=== PATIENT | female | born 1950 | race Caucasian/White ===

== ENCOUNTER → 2017-09-16 16:46 | Outpatient (CLI) | payer MEDICARE, OTHER, SELFPAY ==
[2017-09-16 17:02] LABS: Bacteria Urine None Seen; RBC Urine None Seen (0-5/HPF); WBC Urine None Seen (0-5/HPF)
[2017-09-16 17:30] LABS: Add Manual Diff / Slide Review NO; Basophils Percent Auto 1.1 % (0-2); Eosinophils Percent Auto 2.7 % (2-4); Hematocrit 38.8 % (36-46); Lymphocytes Percent Auto 20.2 % (25-40); Mean Corpuscular HGB Conc 33.5 % (30-36); Mean Corpuscular Hemoglobin 28.2 PG (26-34); Mean Corpuscular Volume 84.2 fL (80-100); Monocytes Percent Auto 9.8 % (3-14); Neutrophils Absolute Auto 4100 /uL (3000-5900); Neutrophils Percent Auto 66.2 % (50-75); Platelet Count 272 X10^3/uL (150-400); Red Blood Cell Count 4.61 X10^6/uL (4.0-5.2); Red Cell Distribution Width 13.6 % (11.6-14.8); White Blood Cell Count 6.2 X10^3/uL (4.5-11.0)
[2017-09-16 17:39] LABS: Hemoglobin A1C% w Est Avg Glu 5.6 % (4.0-6.0)
[2017-09-16 17:48] LABS: Appearance Urine UA CLEAR; Bilirubin Urine UA NEGATIVE (NEGATIVE); Color Urine UA YELLOW; Glucose Urine UA NEGATIVE (Normal); Ketones Urine UA TRACE (NEGATIVE); Leukocyte Esterase Urine UA NEGATIVE (NEGATIVE); Nitrite Urine UA Negative (Negative); Occult Blood Urine UA NEGATIVE (Negative); Protein Urine UA NEGATIVE (Negative); Specific Gravity Urine UA >=1.030 (1.000-1.035); Urobilinogen Urine UA 0.2 E.U./dL (0.2)
[2017-09-16 17:57] LABS: Hyaline Casts Urine 0-1/LPF; Mucus Urine 1+ (Negative)
[2017-09-16 18:01] LABS: BUN Creatinine Ratio 27.8 (6-22); Blood Urea Nitrogen 25 mg/dL (7-17); Calcium 10.5 mg/dL (8.4-10.2); Carbon Dioxide 29 mmol/L (22-32); Chloride 100 mmol/L (98-107); Estimated Glomerular Filt Rate > 60.0 mL/min (>60); Glucose 107 mg/dL (80-110); HEMOLYSIS < 15 (0-50); Potassium 3.5 mmol/L (3.4-5.1); Sodium 139 mmol/L (137-145)
== END ==
PROVIDERS: PCP Internal Medicine; Visit Provider Orthopaedic Surgery
DX: Z01.818 Encounter for other preprocedural examination (principal); M25.561 Pain in right knee; I10 Essential (primary) hypertension
CPT/HCPCS: 36415; 80048; 81001; 83036; 85025; 93005

== ENCOUNTER 2017-09-28 08:41 | Inpatient (IN) | payer MEDICARE, OTHER, SELFPAY ==
[2017-09-08 08:26] VITALS: BMI 38.4
[2017-09-28] VITALS (12 sets, daily range): BP systolic 114–171; BP diastolic 65–90; PULSE 58–85; RESP 13–18; TEMP 36–37.1; O2SAT 94–98; BMI 38.4
--- NOTE | 2017-09-28 | DI.RAD.S_ITS ---
PROCEDURE: XR KNEE RT 1TO2V INDICATIONS: 67 year-old female status post right knee replacement. TECHNIQUE: 2 postoperative view(s) of the knee acquired. COMPARISON: [facility] [place], CR, XR BONE LENGTH SCANOGRAM, 06/18/2017, 12:33. [facility] [place], CR, XR ARTHROGRAM KNEE RIGHT, 04/12/2017, 11:36. [facility], RG, KNEE 3VW (RT), 11/13/2014, 10:40. FINDINGS: Bones: Patient is status post knee joint arthroplasty. Hardware components are in expected positions. Visualized bony structures are intact. Soft tissues: Overlying postoperative changes are noted, including a surgical drain. IMPRESSION: Status post right knee arthroplasty, with hardware components in expected positions. Dictated by: Mau Holt M.D. on 09/28/2017 at 13:32 Approved by: Mau Holt M.D. on 09/28/2017 at 13:33
[2017-09-28] MEDS: LACTATED RINGERS 1,000 ML 42 ML IV ×2 (09:24→12:37)
--- NOTE | 2017-09-28 09:57 | SUR.PREOP ---
Dr Escamilla notified of suspician of ring worm on sole of left foot, states to continue with case.
[2017-09-28] MEDS: VANCOMYCIN 1,000 MG/200 ML FROZ.PIGGY 200 MG IV (10:10)
[2017-09-28] MEDS: MIDAZOLAM 2 MG/2 ML VIAL IV (10:35)
[2017-09-28] MEDS: fentaNYL 100 MCG/2 ML INJ 50 MCG IV (10:35)
[2017-09-28] MEDS: CEFAZOLIN 2 GM/100 ML FROZ.PIGGY IV ×2 (10:49→22:41)
--- NOTE | 2017-09-28 10:54 | SUR.PREOP ---
Block start time [1035] . Monitoring initiated and maintained throughout procedure. Oxygen and medications given per anesthesiologist instructions. Patient remained stable throughout procedure, no adverse reactions noted. Block end time [1044]
--- NOTE | 2017-09-28 10:59 | PM.PREOP ---
Pre-operative Note Interval Note Pre-op Check: History & Physical Reviewed by Physician
--- NOTE | 2017-09-28 10:59 | PM.OP.1 ---
Operative Date/Time/Diagnoses - Date of procedure: 09/28/17 Time of procedure: 10:59 Pre-op diagnosis: Right knee arthritis Post-op diagnosis: same Procedure & Clinicians Procedure: Right total knee arthroplasty Same procedure as scheduled: Yes Indications: The patient has had progressively worsening right knee pain with radiographic changes consistent with arthritis. Non-operative management has failed and the patient has requested total knee replacement. The risks, benefits and alternatives to surgery were discussed with the patient prior to proceeding. Risks discussed included, but were not limited to, failure to relieve pain, stiffness, infection, nerve damage, deep venous thrombosis, pulmonary embolism, stroke, coma, heart attack, permanent paralysis and , as well as the potential need for eventual revision of the prosthetic. Surgeon: Faye Escamilla Track Maintainer: Shelton Benitez Anesthesia Type: Spinal Operative Notes Findings: Severe right knee OA Closure Type: primary Specimen(s): none sent Implants & Drains: Kyler be CS to size 6 right femur, 35 x 7 and 0.5 mm patella, size 5 right tibia, 9 mm poly Applied: drain(s) Estimated Blood Loss (mL): 250 Blood products transfused: none Tourniquet time (min): 70 Procedure in detail: The patient was seen in the pre-operative area, where the patient identified the right knee as the operative site and this was marked with my initials. The patient received pre-operative antibiotics, and was taken to the operating room and placed on the operative table in the supine position. After satisfactory anesthesia, a timekeeping supervisor out was performed. The right leg was encircled with a tourniquet about the proximal thigh, and the leg was prepared from the toes to the tourniquet with ChloroPrep in the usual fashion and draped through sterile drapes. The leg was elevated and exsanguinated with Eschmark bandage and the tourniquet inflated to [250] mmHg pressure. The knee was approached through an approximately 18 cm incision centered over the patella and carried into the knee through a medial parapatellar arthrotomy. A portion of the medial and lateral meniscus was resected. Soft tissue was carefully mobilized around the patella the patella was measured with a caliper. Bone was resected from the patella and the patellar height was reconstituted with up an appropriate sized patellar component. For a cover was then placed on the patella. A small amount of additional medial and lateral meniscus was resected. The visionare guide fit well to the distal femur. It looked like an appropriate distal femoral cut and the cut was made without difficulty. The rotation was assessed and the appropriate size femoral guide was placed on the distal femur and finishing cuts were made. There is no evidence of notching. The anterior, posterior and chamfer cuts were then made. The posterior osteophytes and soft tissues were then removed. The posterior capsule was injected with part of a mixture of 60 ml 0.25% Marcaine mixed with 20 ml Exparel for post operative pain control. The remainder of this mixture was injected into the capsule and subcutaneous tissues during cement curing. The tibia was prepared and the visionaire guide fit well to the distal tibia. The rotation was assessed. The patient was placed in extension residual medial and lateral meniscus as well as any residual bone was carefully resected. [No] additional tibia was resected. Hemostasis was achieved especially posteriorly. Additional local was injected into the posterior capsule. The extension gap was assessed and additional releases for gap balancing were performed as necessary. It was checked with the gap intake specialist. The femoral component was trial was placed and the notch was finished. Trial tibial and femoral components were then placed and the knee placed through a range of motion. Range of motion was [0-130], with good stability throughout the range. The trials were then removed, and the tibia was finished. The bone was prepared with pulsatile lavage, and dried with a sponge. Cement was applied and the final prosthetics placed. Excess cement was removed during and after cement curing. A brief Betadine soak was performed. After confirming there was no extruded cement posteriorly, the final tibial insert was placed. The knee was copiously irrigated and the tourniquet deflated. Hemostasis was obtained with the [Aquamantys system]. A drain was placed and brought out superolaterally. The capsule was closed with interrupted # 1 black braided suture. The subcutaneous layer was closed with barbed sutures, and the skin with a running 3-0 V-Lock suture and Surgical glue. An Aquacel Ag dressing was applied and the patient was taken to recovery having tolerated the procedure well. Complications: none Condition: stable Disposition: Acute Care Plan for aftercare: The patient will be maintained on a standard total knee replacement protocol with weight bearing as tolerated. The patient will receive aspirin and sequential compression devices for DVT prophylaxis. The patient will be discharged home when safe for the home environment.
--- NOTE | 2017-09-28 11:06 | P.OP_ITS ---
Operative Date/Time/Diagnoses - Date of procedure: 09/28/17 Time of procedure: 10:59 Pre-op diagnosis: Right knee arthritis Post-op diagnosis: same Procedure & Clinicians Procedure: Right total knee arthroplasty Same procedure as scheduled: Yes Indications: The patient has had progressively worsening right knee pain with radiographic changes consistent with arthritis. Non-operative management has failed and the patient has requested total knee replacement. The risks, benefits and alternatives to surgery were discussed with the patient prior to proceeding. Risks discussed included, but were not limited to, failure to relieve pain, stiffness, infection, nerve damage, deep venous thrombosis, pulmonary embolism, stroke, coma, heart attack, permanent paralysis and , as well as the potential need for eventual revision of the prosthetic. Surgeon: Faye Escamilla Brand Activation Manager: Shelton Benitez Anesthesia Type: Spinal Operative Notes Findings: Severe right knee OA Closure Type: primary Specimen(s): none sent Implants & Drains: Kyler be CS to size 6 right femur, 35 x 7 and 0.5 mm patella, size 5 right tibia, 9 mm poly Applied: drain(s) Estimated Blood Loss (mL): 250 Blood products transfused: none Tourniquet time (min): 70 Procedure in detail: The patient was seen in the pre-operative area, where the patient identified the right knee as the operative site and this was marked with my initials. The patient received pre-operative antibiotics, and was taken to the operating room and placed on the operative table in the supine position. After satisfactory anesthesia, a time checker out was performed. The right leg was encircled with a tourniquet about the proximal thigh, and the leg was prepared from the toes to the tourniquet with ChloroPrep in the usual fashion and draped through sterile drapes. The leg was elevated and exsanguinated with Eschmark bandage and the tourniquet inflated to [250] mmHg pressure. The knee was approached through an approximately 18 cm incision centered over the patella and carried into the knee through a medial parapatellar arthrotomy. A portion of the medial and lateral meniscus was resected. Soft tissue was carefully mobilized around the patella the patella was measured with a caliper. Bone was resected from the patella and the patellar height was reconstituted with up an appropriate sized patellar component. For a cover was then placed on the patella. A small amount of additional medial and lateral meniscus was resected. The visionare guide fit well to the distal femur. It looked like an appropriate distal femoral cut and the cut was made without difficulty. The rotation was assessed and the appropriate size femoral guide was placed on the distal femur and finishing cuts were made. There is no evidence of notching. The anterior, posterior and chamfer cuts were then made. The posterior osteophytes and soft tissues were then removed. The posterior capsule was injected with part of a mixture of 60 ml 0.25% Marcaine mixed with 20 ml Exparel for post operative pain control. The remainder of this mixture was injected into the capsule and subcutaneous tissues during cement curing. The tibia was prepared and the visionaire guide fit well to the distal tibia. The rotation was assessed. The patient was placed in extension residual medial and lateral meniscus as well as any residual bone was carefully resected. [No] additional tibia was resected. Hemostasis was achieved especially posteriorly. Additional local was injected into the posterior capsule. The extension gap was assessed and additional releases for gap balancing were performed as necessary. It was checked with the gap agricultural extension educator. The femoral component was trial was placed and the notch was finished. Trial tibial and femoral components were then placed and the knee placed through a range of motion. Range of motion was [ 0-130], with good stability throughout the range. The trials were then removed, and the tibia was finished. The bone was prepared with pulsatile lavage, and dried with a sponge. Cement was applied and the final prosthetics placed. Excess cement was removed during and after cement curing. A brief Betadine soak was performed. After confirming there was no extruded cement posteriorly, the final tibial insert was placed. The knee was copiously irrigated and the tourniquet deflated. Hemostasis was obtained with the [Aquamantys system]. A drain was placed and brought out superolaterally. The capsule was closed with interrupted # 1 black braided suture. The subcutaneous layer was closed with barbed sutures, and the skin with a running 3 -0 V-Lock suture and Surgical glue. An Aquacel Ag dressing was applied and the patient was taken to recovery having tolerated the procedure well. Complications: none Condition: stable Disposition: Acute Care Plan for aftercare: The patient will be maintained on a standard total knee replacement protocol with weight bearing as tolerated. The patient will receive aspirin and sequential compression devices for DVT prophylaxis. The patient will be discharged home when safe for the home environment.
[2017-09-28] MEDS: BUPIVACAINE LIPOSOME 266 MG/20 ML VIAL INJ (11:30)
[2017-09-28] MEDS: BUPIVACAINE 0.25% W/ EPI 50 ML VIAL INJ (11:30)
[2017-09-28] MEDS: POVIDONE-IODINE 15 ML, SODIUM CHLORIDE 0.9% 250 ML TOP (11:31)
--- NOTE | 2017-09-28 11:36 | SUR.OPER ---
Supine on padded OR bed. Pillow under head, arms secured on padded armboards <90 degree abduction. Safety belt across torso. Non-operative leg secured with tape over blanket over lower leg. Operative leg secured in DeMayo/Reinaldo positioner. Foam padded brace at foot and calf of operative leg.
--- NOTE | 2017-09-28 12:40 | SUR.PREOP ---
Dr Escamilla in preop to see pts foot, states ok to proceed with surgery.
[2017-09-28] MEDS: MEPERIDINE 25 MG/ML SYRINGE IV (13:17)
--- NOTE | 2017-09-28 13:21 | SUR.PHASEI ---
spinal clear to L4
[2017-09-28] MEDS: hydrOXYzine 50 MG/ML INJ 25 MG IM (13:32)
--- NOTE | 2017-09-28 14:37 | PC.NURSE ---
Addendum entered by June Yang R.N. 09/28/17 15:06: Able to administer one 10mg tablet of oxycodone with bite of applesauce, no nausea reported. 100% RA Original Note: Patient arrived to room 204 at 1345 c/o 6/10 pain. Orders still haven't transferred and patient now c/o 10/10 pain (in knee). Coordinator called down to OR to rectify issue.
[2017-09-28] MEDS: OXYCODONE IR 10 MG TABLET PO (15:03)
[2017-09-28] MEDS: LACTATED RINGERS 1,000 ML 125 ML IV ×2 (15:11→22:43)
[2017-09-28] MEDS: ACETAMINOPHEN 325 MG TABLET 650 MG PO ×2 (15:18→20:52)
[2017-09-28] MEDS: KETOROLAC 30 MG/ML VIAL IV (16:19)
[2017-09-28] MEDS: HYDROMORPHONE 2 MG TABLET PO (17:25)
--- NOTE | 2017-09-28 18:52 | PC.NURSE ---
At 1530 patient still reporting pain not relieved by Oxycodone. Dr Escamilla in room to see patient. New order for Toradol 30 mg IV given. Did report some relief, eventually called to report pain 7 or 8, describing burning to top of my knee. We talked about pain medication options, she agreed to try Dilaudid 2 mg PO instead of the Oxycodone. After 1 hour said medication really did help, reports much less burning pain to knee. Able to transfer to [facility] for void, then ambulated around bed to recliner where she is now resting. Said felt good to bear weight on RLE, needing minimal SBA & cueing from staff for transfer. Good use of FWW. Family visiting.
[2017-09-28] MEDS: DOCUSATE 100 MG CAPSULE PO (20:51)
[2017-09-28] MEDS: SENNOSIDES 8.6 MG TABLET 17.2 MG PO (20:51)
[2017-09-28] MEDS: hydroCHLOROthiazide 25 MG TABLET PO (20:52)
[2017-09-28] MEDS: ASPIRIN EC 81 MG TABLET PO (20:53)
[2017-09-29] VITALS: BP 140/74; PULSE 59; RESP 20; TEMP 36.6; O2SAT 98
[2017-09-29] MEDS: HYDROMORPHONE 2 MG TABLET PO ×3 (00:06→06:30)
[2017-09-29] MEDS: ACETAMINOPHEN 325 MG TABLET 650 MG PO ×2 (02:34→09:16)
[2017-09-29 04:00] VITALS: BP 147/77; PULSE 70; RESP 20; TEMP 36.6; O2SAT 94
[2017-09-29 06:12] LABS: Hematocrit 33.2 % (36-46); Hemoglobin 11.1 g/dL (12.0-16.0)
[2017-09-29] MEDS: CEFAZOLIN 2 GM/100 ML FROZ.PIGGY IV (06:29)
--- NOTE | 2017-09-29 07:14 | PM.DS.1 ---
History of Present Illness Date Patient Seen: 09/29/17 Time Patient Seen: 07:09 Chief complaint: rt total kne arthroplasty [id number] Narrative: Patient was seen postop day 1 status post right TKA. The patient is doing well, she has been up several times with assistance to the bathroom. Pain is better controlled today than yesterday. She would like to go home today if cleared by physical therapy. Discharge Providers Date of admission: 09/28/17 08:41 Primary care physician: Last Ewing MD Consults: 09/28/17 06:00 Consult to Discharge Planning Routine Comment: post operative joint surgery 09/28/17 14:50 Consult to Discharge Planning Routine Comment: Consult to Physical Therapy Evaluate & Treat Comment: Physician Instructions: postop TKA protocol Consult to Respiratory Therapy Evaluate & Treat Comment: Physician Instructions: Evaluate and treat Discharge provider: Bridget Underwood PA-C Summary Discharge Diagnosis: Right knee osteoarthritis Hospital Course: The patient was transferred to the surgical floor status post right TKA on 09/28/2017. Patient tolerated the procedure well with no major complications. Patient was seen by PT who recommended patient be discharged home. Patient to be discharged on 09/29/2017. Status at Discharge Cognitive/behavioral status at discharge: Alert oriented x3. Functional status at discharge: uses cane/walker Overall status at discharge: patient is progressing back to baseline Time Spent with Patient Less than 30 minutes Exam Vital Signs (past 8 hours): - 09/29/17 00:00 09/29/17 04:00 Temperature 97.8 F 98 F Pulse Rate 59 L 70 Respiratory Rate 20 20 Blood Pressure 140/74 H 147/77 H Pulse Oximetry 98 94 Oxygen Delivery Method Room Air Narrative Exam Narrative: Well-developed well-nourished in no acute distress. Patient alert oriented x3. Exam right knee dressing is clean dry intact. Hemovac drain has minimal discharge in it. Calf is soft and supple and she has full range of motion of the ankle. She is neurovascularly intact in this extremity. Objective Labs Result Diagrams: 09/29/17 05:55 Labs: Laboratory Results - last 24 hr 09/29/17 05:55 Hgb 11.1 L Hct 33.2 L Discharge Plan Discharge Plan Patient Disposition: Home, Self-Care Discharge Med Rec/Prescriptions Prescriptions: New oxycodone 5 mg tablet 5 mg PO Q4-6H PRN (Reason: pain) Qty: 60 RF: 0 aspirin 81 mg Tablet,Delayed Release (Dr/Ec) 81 mg PO BID Qty: 0 RF: 0 docusate sodium 100 mg Capsule 100 mg PO BID Qty: 0 RF: 0 hydroxyzine pamoate [Vistaril] 25 mg capsule 25 mg PO Q6-8H PRN (Reason: nausea) Qty: 60 RF: 0 Continue metoprolol succinate 50 mg Tablet Extended Release 24 Hr 50 mg PO DAILY RF: 0 hydrochlorothiazide 25 mg Tablet 25 mg PO BID RF: 0 sennosides-docusate sodium [Senna with Docusate Sodium] 8.6-50 mg Tablet 3 tab PO BEDTIME RF: 0 calcium polycarbophil [Fiber (calcium polycarbophil)] 625 mg Tablet 1,250 mg PO DAILY RF: 0 losartan 100 mg Tablet 100 mg PO DAILY RF: 0 magnesium 200 mg Tablet 200 mg PO DAILY RF: 0 albuterol sulfate 90 mcg/actuation Hfa Aerosol Inhaler 1 - 2 puff INHALATION Q4-6H PRN (Reason: Wheezing) RF: 0 Discontinued aspirin 81 mg Tablet,Delayed Release (Dr/Ec) 81 mg PO DAILY RF: 0 Follow up/Referrals: [facility] [Provider Group] - 10/04/17 4:00 pm (Appointment with Larisa Castillo) Provider Discharge Instructions Diet: Diet as Tolerated Wound Care Report to your healthcare provider any signs of infection, such as:: chills, fever, night sweats, increased pain and unusual drainage Dressing: Keep Aquacel dressing on and clean, dry & intact. May remove patricia wrap POD #2. May shower with Aquacel on. Visit Report/Discharge Packet Instructions: DI for Knee Replacement Discharge Data Primary Care Provider: Last Ewing Attending Provider: Faye Escamilla Admit Date/Time: 09/28/17 08:41 Quality VTE Deep Vein Thrombosis/Pulmonary Embolism Present on Admission: No
[2017-09-29 07:50] VITALS: BP 169/75; PULSE 69; RESP 16; TEMP 36.3; O2SAT 98
[2017-09-29 09:16] VITALS: BP 169/75
[2017-09-29] MEDS: hydroCHLOROthiazide 25 MG TABLET PO (09:16)
[2017-09-29] MEDS: METOPROLOL ER 50 MG TABLET PO (09:16)
[2017-09-29] MEDS: CALCIUM POLYCARBOPHIL 625 MG TABLET 1250 MG PO (09:16)
[2017-09-29] MEDS: DOCUSATE 100 MG CAPSULE PO (09:16)
[2017-09-29] MEDS: ASPIRIN EC 81 MG TABLET PO (09:16)
[2017-09-29] MEDS: LOSARTAN 50 MG TABLET 100 MG PO (09:17)
--- NOTE | 2017-09-29 09:43 | PT.IIE ---
Current Diagnoses Unilateral primary osteoarthritis, right knee (09/28/17) Surgery Performed Operation Date: 09/28/17 10:45 Actual Procedures p Total Knee Arthroplasty(Right) - Faye sEcamilla MD Surgical History (Last Reviewed 09/29/17 @ 08:16 by Lydia Seo, PT) H/O carpal tunnel repair (Acute) H/O left cataract extraction (Acute) H/O right cataract extraction (Acute) H/O vascular surgery (Acute) H/O: (Acute) History of corneal transplant (Acute) History of tonsillectomy (Acute) Previous back surgery (Acute) Medical History (Last Reviewed 09/29/17 @ 08:15 by Lydia Seo, PT) Arthritis (Acute) Chronic constipation (Acute) History of bronchitis (Acute) History of headache (Acute) History of hysterectomy (Acute) Hyperaldosteronism (Acute) Hypertension (Acute) Lipodermatosclerosis (Acute) Neck pain (Acute) Numbness of arm (Acute) Positional vertigo (Acute) Post-operative nausea and vomiting (Acute) Postmenopausal (Acute) Skin cancer (Acute) Wheezes (Acute) Physical Therapy Inpatient Evaluation/Re-Eval M1 PT/OT-IP Prior Functional Status Start: 09/29/17 08:18 Freq: NEEDED Status: Active Protocol: Document 09/29/17 09:43 DLM (Rec: 09/29/17 10:26 [facility] [id number]) Medical Review Prior Functional Status Medical History Reviewed Yes Diet/Fluid Consistency Regular Communication WNL Mobility and Gait Independent without device Activities of Daily Living and IADL's Independent Social History Household Members spouse Living Arrangements House Number of Floors (Floors) One Floor Number of Stairs To Enter/Railing? 3 with one rail Home Environment Standard Height Toilet Home Equipment Front Wheel Walker Straight Cane Raised Toilet Seat Without Armrests Additional Social History Comment Her toilet is in a small separate room that is very small M2 PT-IP Current Condition Start: 09/29/17 08:18 Freq: NEEDED Status: Active Protocol: Document 09/29/17 09:43 DLM (Rec: 09/29/17 10:26 [facility] [id number]) Physical Therapy Current Condition Current Condition Evaluation Date 09/29/17 Treatment Diagnosis right total knee arthroplasty, gait impairment Onset Date 09/28/17 Weight Bearing Status Weight Bearing Status Weight Bear as Tolerated M3 PT-IP Subjective Start: 09/29/17 08:18 Freq: NEEDED Status: Active Protocol: Document 09/29/17 09:43 DLM (Rec: 09/29/17 10:26 [facility] [id number]) Subjective Physical Therapy Visit Type Type Initial Evaluation Visit Start Time 09:00 Visit Stop Time 09:43 Total Visit Minutes 43 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 She has out-pt PT scheduled for Wednesday Patient/Caregiver Goals discharge home Therapy Pain Assessment Pain When Pain Assessed At Rest Pain Present Pain Present Pain Reported Location Surgical left knee Intensity 4 Scale Used Numeric (1 - 10) Description Aching Pain Behaviors Wincing Pain Management Techniques Apply Cold Elevation Timing of Activity with Medications M4 PT-IP Mobility and Gait Start: 09/29/17 08:18 Freq: NEEDED Status: Active Protocol: Document 09/29/17 09:43 DLM (Rec: 09/29/17 10:26 [facility] [id number]) PT-Bed Mobility Assessment Supine to Sit Supine to Sit Independent Sit to Supine Sit to Supine Independent Scooting Scooting to Edge of Bed Independent Scooting Up and Down in Bed Independent PT-Transfer Assessment Sit to and From Stand Sit to and from Stand Independent Use of Upper Extremities Equipment Transfer Assistive Device Gait Belt Front Wheeled Walker Transfers Transfer Destination Chair Transfer Technique Stand Step Pivot Transfer Ability Level of Assist Independent Comments Mobility Comments safe use of FWW Gait Assessment Gait Gait Assistance Required: Standby Assistance Distance (Feet) (feet) 50 Able to Maintain Weight Bearing Status Yes During Gait Assistive Devices Assistive Device Gait Belt Front Wheeled Walker Gait Deviations General Gait Pattern Antalgic Factors Limiting Gait Function Factors Limiting Gait Function Decreased Sensation Decreased Strength Limited Range of Motion Pain Poor Balance Stair Climbing Assessment Evaluation Level of Assist On Stairs Standby Assistance Devices Stair Climbing Assistive Devices Left Railing Right Railing Technique/Endurance Stair Climbing Direction Ascend and Descend Stair Climbing Technique Step to Step Number of Steps Climbed 3 Query Text: Stair Climbing Set # Repetitions (reps) 1 Comments Stair Climbing Comments needs UE support to manage her right knee pain PT-Balance Assessment Sitting Balance and Reactions Static Sitting Balance Ability Normal Dynamic Sitting Balance Ability Normal Standing Balance and Reactions Static Standing Balance Ability Good Dynamic Standing Balance Ability Good Device Used with FWW M5 PT-IP Objective Assessments Start: 09/29/17 08:18 Freq: NEEDED Status: Active Protocol: Document 09/29/17 09:43 DLM (Rec: 09/29/17 10:26 [facility] [id number]) Orientation Orientation/Cognition Level of Alertness Alert Orientation Name Age Birthday Month Date Year Day of Week Place Situation Language Function Ability No Deficits Noted Safety Awareness Understands Safety Issues Memory Description No Deficits Noted Gross Range of Motion Upper Extremity ROM Assessment Within Functional Limits Lower Extremity ROM Assessment Right Impaired Impairments knee 10-80 degrees with pain, patricia wrap on knee today Strength Upper Extremity Strength Assessment Within Functional Limits Lower Extremity Strength Assessment Right Impaired Hip needs assist with straight leg raise, uses UE's to assist LE into bed Knee ext 3-/5, flexion 3+/5 Ankle DF 5/5 Coordination Assessment Gross Coordination Gross Coordination WNL Sensation Assessment Sensation Gross Sensation WNL Muscle Tone Muscle Tone WNL Yes M6 PT-IP Treatment Start: 09/29/17 08:18 Freq: NEEDED Status: Active Protocol: Document 09/29/17 09:43 DLM (Rec: 09/29/17 10:26 [facility] [id number]) Physical Therapy Treatment Exercises Exercises Ankle Pumps Quad Sets Heel Slides Straight Leg Raises Passive Knee Extension Hang Seated Knee Flexion/Extension Education Education Provided Weight Bearing Status Post-Op Packet Safety Equipment Issued Equipment Type and Company pt has her FWW from home M7 PT-IP Assessment and Plan Start: 09/29/17 08:18 Freq: NEEDED Status: Active Protocol: Document 09/29/17 09:43 DLM (Rec: 09/29/17 10:26 [facility] [id number]) PT Summary Assessment and Plan Potential Rehabilitation Potential Excellent Status of Condition at Evaluation Evolving Summary Impairments Pain ROM Strength Balance Bed Mobility Transfers Gait Activity Tolerance Assessment Summary Pt is progressing well today, post-op day one. She tolerated gait and stairs well with knee pain. Pt fatigued and nauseated at end of visit ( nursing informed). Her Spouse is not present at this time for training. Anticipate she will be safe to discharge home later today if her Spouse is able to assist her and her nausea can be managed. Goals Gait Goal Independent Front Wheel Walker Gait Distance 150 Other Goals Up and down 3 steps with rail and cane, independent Days to Meet Goals 2 Frequency of Treatment Frequency Of Treatment Twice a Day Treatment Plan Physical Therapy Treatment Plan Bed Mobility Training Transfer Training Gait Training Therapeutic Exercise Balance Retraining Post Op Education Discharge Planning Hot or Cold Pack Other Recommendations and Next Treatment progress gait as tolerated, Focus education with her Spouse Recommendations To Nursing Amount of Assist Needed Standby Assistance Discharge Recommendations PT Discharge Recommendations Home with Assistance Outpatient PT
[2017-09-29] MEDS: OXYCODONE IR 10 MG TABLET PO (10:00)
== END 2017-09-29 10:55 | disposition home or self-care (01) | DRG 470 ==
PROVIDERS: Admitting Provider Orthopaedic Surgery; PCP Internal Medicine; Visit Provider Orthopaedic Surgery
PROC: 0SRC0JZ Replacement of Right Knee Joint with Synthetic Substitute, Open Approach (ICD-10-PCS; CPT 27447; principal; 2017-09-28 10:45)
DX: M17.11 Unilateral primary osteoarthritis, right knee (principal); E66.9 Obesity, unspecified; Z68.38 Body mass index [BMI] 38.0-38.9, adult; I10 Essential (primary) hypertension
CPT/HCPCS: 36415; 64450; 73560; 85014; 85018; 97110; 97162; C1776; C9290; J0690; J1885; J2175; J2250; J2704; J3010; J3370; J3410

== ENCOUNTER → 2023-07-21 15:08 | Outpatient (CLI) | payer MEDICARE, OTHER, SELFPAY ==
[2023-06-08 14:07] VITALS: BMI 38.4
== END ==
PROVIDERS: PCP Family Medicine; Referring Provider Family Medicine; Visit Provider Family Medicine
DX: R00.2 Palpitations (principal); I1A.0 Resistant hypertension; R00.1 Bradycardia, unspecified
CPT/HCPCS: 93246

== ENCOUNTER → 2024-03-07 11:32 | Outpatient (CLI) | payer MEDICARE, OTHER, SELFPAY ==
[2023-06-08 14:07] VITALS: BMI 38.4
[2024-03-07 13:34] LABS: BUN Creatinine Ratio 37.7 (6-22); Blood Urea Nitrogen 23 mg/dL (7-17); Calcium 10.8 mg/dL (8.4-10.2); Carbon Dioxide 29 mmol/L (22-32); Chloride 103 mmol/L (98-107); Estimated Glomerular Filt Rate > 60 mL/min (>60); Glucose 99 mg/dL (80-110); HEMOLYSIS < 15 (0-50); Potassium 3.6 mmol/L (3.4-5.1); Sodium 139 mmol/L (137-145)
[2024-03-07 15:03] LABS: Hep C Virus Ab w/Reflex Quant NEGATIVE s/c (NEGATIVE)
== END ==
PROVIDERS: PCP Family Medicine; Referring Provider Family Medicine; Visit Provider Family Medicine
DX: Z00.00 Encounter for general adult medical examination without abnormal findings (principal); Z11.59 Encounter for screening for other viral diseases; I1A.0 Resistant hypertension; N95.2 Postmenopausal atrophic vaginitis
CPT/HCPCS: 36415; 80048; 86803

== ENCOUNTER → 2024-03-10 14:26 | Outpatient (CLI) | payer MEDICARE, OTHER, SELFPAY ==
[2023-06-08 14:07] VITALS: BMI 38.4
[2024-03-13 14:10] LABS: Fecal Immunochemical Test Negative (Negative)
== END ==
PROVIDERS: PCP Family Medicine; Referring Provider Family Medicine; Visit Provider Family Medicine
DX: Z12.11 Encounter for screening for malignant neoplasm of colon (principal)
CPT/HCPCS: 82274

== ENCOUNTER → 2024-04-20 14:41 | Outpatient (CLI) | payer MEDICARE, OTHER, SELFPAY ==
[2023-06-08 14:07] VITALS: BMI 38.4
--- NOTE | 2024-04-20 14:43 | DI.MG.S_ITS ---
BILATERAL DIGITAL SCREENING MAMMOGRAM 3D/2D WITH CAD: 04/20/2024 CLINICAL: Routine screening. Family history of breast cancer. Comparison is made to exams dated: 11/04/2022 mammogram, 10/22/2020 mammogram, 05/23/2019 mammogram, and 04/20/2019 mammogram - [facility]. There are scattered areas of fibroglandular density (category b / 25%-50% glandular tissue). Current study was also evaluated with a Computer Aided Detection (CAD) system. No significant masses, calcifications, or other findings are seen in either breast. There has been no significant interval change. IMPRESSION: NEGATIVE There is no mammographic evidence of malignancy. A 1 year screening mammogram is recommended. Based on the Tyrer Cuzick model (a risk assessment model) the patient's lifetime risk is 4.5% and her 10 year risk is 4.1%. According to the ACR, ACS, and NCCN guidelines, an annual breast MRI exam along with mammogram is recommended if the patient's lifetime risk is 20% or greater. This exam was interpreted at Station ID: [id number]. NOTE: For mammograms, a report in lay terms will be sent to the patient. Approximately 15% of breast malignancies will not be visualized mammographically. In the management of a palpable breast mass, a negative mammogram must not discourage biopsy of a clinically suspicious lesion. Electronically Signed By: Brian rey/ana:04/21/2024 12:34:32 letter sent: Normal Exam ACR BI-RADS Category 1: Negative
--- NOTE | 2024-04-20 14:43 | DI.RAD.S_ITS ---
PROCEDURE: XR DEXA AXIAL SKELETON INDICATIONS: Screening disorders of bone density and structure COMPARISON: None. FINDINGS: Lumbar Spine: Bone mineral density is 0.951 g/cm2, T score -0.9. Left Femoral Neck: Bone mineral density 0.874 g/cm2, T score -0.6. Left Hip: Bone mineral density 0.728 g/cm2, T score -1.1. Fracture Risk Calculation (when applicable): 10-year fracture risk of a major osteoporotic fracture 14% and of a hip fracture 2.1%. (T score greater or equal to -1.0 to: NORMAL) (T score from -1.1 to -2.4: OSTEOPENIA) (T score less than or equal to -2.5: OSTEOPOROSIS) IMPRESSION: By WHO criteria, patient has osteopenia. Follow-up guidelines as follows: Osteoporosis: Consider a repeat DEXA and Vertebral Fracture Assessment (VFA) exam in 2 years or sooner if medically necessary, to reassess this patient's status. Osteopenia: Consider a repeat DEXA in 2-3 years to reassess this patient's status, or if there is a new clinical indication. Normal: Consider a repeat DEXA in 5 years or sooner, or if there is a new clinical indication. All treatment decisions require clinical judgment and consideration of individual patient factors, including patient preferences, comorbidities, previous drug use, risk factors not captured in the FRAX model (e.g., frailty, falls, vitamin D deficiency, increased bone turnover, interval significant decline in bone density ) and possible under- or over-estimation of fracture risk by FRAX. In addition, the NOF Guide recommends that FDA-approved medical therapies be considered in postmenopausal women and men age >= 50 years with a: * Hip or vertebral (clinical or morphometric) fracture * T-score of <=-2.5 at the spine or hip * Ten-year fracture probability by FRAX of >= 3% for hip fracture or >=20% for major osteoporotic fracture. Approved by: Mickey Elliott M.D. on 04/20/2024 at 17:09
== END ==
PROVIDERS: PCP Family Medicine; Referring Provider Family Medicine; Visit Provider Family Medicine
DX: M85.89 Other specified disorders of bone density and structure, multiple sites (principal); Z12.31 Encounter for screening mammogram for malignant neoplasm of breast; Z80.3 Family history of malignant neoplasm of breast
CPT/HCPCS: 77063; 77067; 77080

== ENCOUNTER → 2024-04-28 17:25 | Outpatient (CLI) | payer MEDICARE, OTHER, SELFPAY ==
[2023-06-08 14:07] VITALS: BMI 38.4
--- NOTE | 2024-04-28 17:27 | DI.RAD.S_ITS ---
PROCEDURE: XR LUMBAR SPINE MIN 4V INDICATIONS: Left lower extremity pain, lumbar radiculopathy TECHNIQUE: 5 views of the lumbar spine acquired, including flexion and extension views. COMPARISON: None. FINDINGS: Diffuse osseous demineralization. Five non rib-bearing lumbar vertebrae are present. Age-indeterminate T12 superior endplate compression fracture with 5-10 percent height loss. The other vertebral body heights are preserved. Multilevel facet arthropathy, most conspicuous at L4-L5 and L5-S1. Multilevel hypertrophy of the spinous processes. Aortic vascular calcifications. Intervertebral disc height loss at L5-S1. No dynamic instability on flexion-extension views. Mildly exaggerated lumbar lordosis. IMPRESSION: No acute radiographic abnormality of the lumbar spine. No dynamic instability. Dictated by: Emmanuel Mark M.D. on 04/28/2024 at 18:24 Approved by: Emmanuel Mark M.D. on 04/28/2024 at 18:26
--- NOTE | 2024-04-28 17:27 | DI.RAD.S_ITS ---
PROCEDURE: XR KNEE LT 3V INDICATIONS: Left knee pain TECHNIQUE: 3 views of the knee were acquired. COMPARISON: None. FINDINGS: No acute fracture or dislocation. The joint spaces are preserved. Small suprapatellar recess joint effusion. IMPRESSION: Small suprapatellar recess joint effusion. Otherwise, no acute radiographic abnormality. Dictated by: Emmanuel Mark M.D. on 04/28/2024 at 18:23 Approved by: Emmanuel Mark M.D. on 04/28/2024 at 18:24
== END ==
PROVIDERS: PCP Family Medicine; Referring Provider Physician Assistant Surgical; Visit Provider Physician Assistant Surgical
DX: M25.562 Pain in left knee (principal); M54.16 Radiculopathy, lumbar region; M25.462 Effusion, left knee
CPT/HCPCS: 72110; 73562

== ENCOUNTER → 2024-05-03 16:28 | Outpatient (CLI) | payer MEDICARE, OTHER, SELFPAY ==
[2023-06-08 14:07] VITALS: BMI 38.4
[2024-05-03 18:51] LABS: BUN Creatinine Ratio 29.5 (6-22); Blood Urea Nitrogen 26 mg/dL (7-17); Calcium 10.7 mg/dL (8.4-10.2); Carbon Dioxide 30 mmol/L (22-32); Chloride 103 mmol/L (98-107); Estimated Glomerular Filt Rate > 60 mL/min (>60); Glucose 113 mg/dL (80-110); HEMOLYSIS < 15 (0-50); Potassium 3.2 mmol/L (3.4-5.1); Sodium 139 mmol/L (137-145)
[2024-05-03 19:07] LABS: Vitamin D 25 Hydroxy (D3) 16.7 ng/mL (30.0-100.0)
[2024-05-05 14:39] LABS: Parathyroid Hormone Int 65 pg/mL (15-65)
[2024-05-05 16:36] LABS: Ionized Calcium 5.8 mg/dL (4.5-5.6)
[2024-05-05 17:08] LABS: Free Kappa Lt Chains, Serum 12.9 mg/L (3.3-19.4); Free Lambda Lt Chains,Serum 9.6 mg/L (5.7-26.3)
[2024-05-08 13:11] LABS: Albumin 3.7 g/dL (2.9-4.4); Alpha-1-Globulin 0.2 g/dL (0.0-0.4); Alpha-2-Globulin 0.7 g/dL (0.4-1.0); Gamma Globulin 0.9 g/dL (0.4-1.8); Globulin Total 2.6 g/dL (2.2-3.9); Protein, Total 6.3 g/dL (6.0-8.5)
== END ==
PROVIDERS: PCP Family Medicine; Referring Provider Family Medicine; Visit Provider Family Medicine
DX: E83.52 Hypercalcemia (principal)
CPT/HCPCS: 36415; 80048; 82306; 82330; 83883; 83970; 84155; 84165

== ENCOUNTER → 2024-06-22 10:41 | Outpatient (CLI) | payer MEDICARE, OTHER, SELFPAY ==
[2023-06-08 14:07] VITALS: BMI 38.4
[2024-06-22 11:48] LABS: BUN Creatinine Ratio 37.5 (6-22); Blood Urea Nitrogen 24 mg/dL (7-17); Carbon Dioxide 30 mmol/L (22-32); Chloride 103 mmol/L (98-107); Estimated Glomerular Filt Rate > 60 mL/min (>60); Glucose 92 mg/dL (80-110); HEMOLYSIS < 15 (0-50); Potassium 4.1 mmol/L (3.4-5.1); Sodium 138 mmol/L (137-145)
== END ==
PROVIDERS: PCP Family Medicine; Referring Provider Family Medicine; Visit Provider Family Medicine
DX: I1A.0 Resistant hypertension (principal); E55.9 Vitamin D deficiency, unspecified; E83.52 Hypercalcemia
CPT/HCPCS: 36415; 80048

== ENCOUNTER → 2024-08-03 11:11 | Outpatient (CLI) | payer MEDICARE, OTHER, SELFPAY ==
[2023-06-08 14:07] VITALS: BMI 38.4
--- NOTE | 2024-08-03 11:13 | DI.MRI.S_ITS ---
PROCEDURE: MR LUMBAR SPINE WO CON INDICATIONS: radicular LBP. TECHNIQUE: Noncontrast sagittal T1 spin echo and T2 fast echo, sagittal STIR, and T2 fast spin echo through the lumbar spine. In cases with scoliosis, additional coronal T2 fast spin echo may be performed. COMPARISON: None. FINDINGS: Image quality: Excellent. Alignment and Curvature: Mild dextrocurvature. Bone Marrow: Marrow is of normal overall signal. No acute vertebral body compression fractures. Mild chronic height loss of T12. Spinal Cord: Conus medullaris terminates at the L1-L2 level. Visualized cord demonstrates normal signal and size. Paraspinous Soft Tissues: No paravertebral masses. T12-L1: Disc desiccation mild height loss. Diffuse disc bulge. No central canal or neural foraminal stenosis. L1-L2: Mild facet arthropathy. No central canal or neural foraminal stenosis. L2-L3: Disc desiccation and minimal disc bulge. Facet arthropathy. No central canal stenosis. Mild bilateral neural foraminal stenosis. L3-L4: Disc desiccation and mild disc bulge. Facet arthropathy and thickening of ligamentum flavum. Mild central canal stenosis. Mild left and moderate right neural foraminal stenosis. L4-L5: Disc desiccation and mild diffuse disc bulge. Facet arthropathy and thickening of ligamentum flavum. Mild central canal stenosis. Mild bilateral neural foraminal stenosis. L5-S1: Disc desiccation and moderate height loss. Facet arthropathy. Mild diffuse disc bulge with posterior annular tear. No significant central canal stenosis. Moderate right and mild left neural foraminal stenosis. IMPRESSION: 1. Multilevel degenerative changes of the lumbar spine as described above. 2. Mild central canal stenosis at L3-L4 and L4-5. 3. Moderate neural foraminal stenosis on the right at L3-L4 and L5-S1. Mild multilevel neural foraminal stenosis at other levels. Dictated by: Jim Randhawa M.D. on 08/04/2024 at 12:13 Approved by: Jim Randhawa M.D. on 08/04/2024 at 12:16
== END ==
PROVIDERS: PCP Family Medicine; Referring Provider Family Medicine; Visit Provider Family Medicine
DX: M47.26 Other spondylosis with radiculopathy, lumbar region (principal); M47.27 Other spondylosis with radiculopathy, lumbosacral region; M48.061 Spinal stenosis, lumbar region without neurogenic claudication; M48.07 Spinal stenosis, lumbosacral region
CPT/HCPCS: 72148

== ENCOUNTER → 2024-10-03 10:26 | Outpatient (CLI) | payer MEDICARE, OTHER, SELFPAY ==
[2023-06-08 14:07] VITALS: BMI 38.4
== END ==
PROVIDERS: PCP Family Medicine; Visit Provider Family Medicine
DX: R35.0 Frequency of micturition (principal)
CPT/HCPCS: 81002; 87077; 87086; 87186

== ENCOUNTER → 2025-01-09 10:55 | Outpatient (CLI) | payer MEDICARE, OTHER, SELFPAY ==
[2023-06-08 14:07] VITALS: BMI 38.4
== END ==
PROVIDERS: PCP Family Medicine; Visit Provider Family Medicine
DX: R30.0 Dysuria (principal); R35.89 Other polyuria
CPT/HCPCS: 81002; 87086

== ENCOUNTER 2025-02-06 11:02 | Emergency (ER) | payer MEDICARE, OTHER, SELFPAY ==
[2023-06-08 14:07] VITALS: BMI 38.4
[2025-02-06] VITALS (7 sets, daily range): BP systolic 123–170; BP diastolic 61–79; PULSE 55–64; RESP 15–18; TEMP 36.6–36.9; O2SAT 94–98; BMI 33.5
[2025-02-06 11:28] LABS: Add Manual Diff / Slide Review NO; Hematocrit 42.4 % (36-46); Hemoglobin 14.3 g/dL (12.0-16.0); Lymphocytes Absolute Auto 1100 /uL (1100-4500); Mean Corpuscular HGB Conc 33.7 % (30-36); Mean Corpuscular Hemoglobin 29.6 PG (26-34); Mean Corpuscular Volume 87.8 fL (80-100); Platelet Count 260 X10^3/uL (150-400)
--- NOTE | 2025-02-06 11:33 | DI.CT.S_ITS ---
PROCEDURE: CT ABDOMEN PELVIS W CON
--- NOTE | 2025-02-06 11:42 | ED_ITS ---
HPI - Back Pain/Injury
--- NOTE | 2025-02-06 11:42 | ED.BACK ---
HPI - Back Pain/Injury <Al Lawrence PA-C - Last Filed: 02/06/25 17:53> General Chief Complaint: Back Pain/Injury Stated Complaint: lower Back pain, Incontinent of bowels x 2 weeks Time Seen by Provider: 02/06/25 11:05 Source: patient History of Present Illness HPI Narrative: 74-year-old female with past medical history hypertension, sleep apnea, hypercalcemia, lumbar radiculopathy with sciatica presents to the ED with about 4 days of stool incontinence. Patient endorses that she has had chronic constipation, had started using some laxatives including MiraLax, Dulcolax. Patient started noticing that she had soft stool leakage in her underwear with no sensation of having a bowel movement. Patient has had that a few times. Patient states that she has not had any leakage over the last 2 days however. Patient denies urinary incontinence. Patient also endorses lower back pain which she describes as an acute on chronic exacerbation of her existing lower back pain. Pain radiates down the back of her left leg, which is also how her lower back pain presents. No numbness, tingling, weakness, saddle paresthesias. No urinary hesitancy. Denies fever, chills, chest pain, shortness of breath, nausea, vomiting, abdominal pain, dysuria, lightheadedness, dizziness, syncope. Related Data Home Medications ?Medication ?Instructions ?Recorded ?Confirmed hydrochlorothiazide 25 mg tablet 25 mg PO BID 09/12/24 01/19/25 Previous Rx's ?Medication ?Instructions ?Recorded atorvastatin 40 mg tablet 40 mg PO DAILY #100 tabs 03/07/24 estradiol 0.01% (0.1 mg/gram) See Rx Instructions vaginal 03/07/24 vaginal cream (Estrace) .COMPLEX #42.5 grams cholecalciferol (vitamin D3) 50 50 mcg PO DAILY #100 caps 06/01/24 mcg (2,000 unit) capsule spironolactone 25 mg tablet 25 mg PO DAILY blood pressure #90 06/01/24 tabs losartan 100 mg tablet 100 mg PO DAILY #90 tabs 07/05/24 amlodipine 10 mg tablet 10 mg PO DAILY #100 tabs 10/18/24 lorazepam 0.5 mg tablet 0.25 - 0.5 mg (0.5 - 1 x 0.5 mg) 01/19/25 PO DAILY PRN sleep #10 tabs Allergies Allergy/AdvReac Type Severity Reaction Status Date / Time tape AdvReac Mild Blisters, Uncoded 02/06/25 11:04 skin tears Review of Systems <Al Lawrence PA-C - Last Filed: 02/06/25 17:53> Constitutional Constitutional: Denies chills, Denies fatigue, Denies fever(s), Denies frequent falls, Denies lethargy and Denies weakness Eyes Eyes: Denies change in vision, Denies eye discharge, Denies irritation and Denies loss of vision ENT Ears, Nose, Mouth, and Throat: Denies change in voice, Denies dizziness, Denies neck pain, Denies sore throat and Denies throat swelling Cardiovascular Cardiovascular: Denies chest pain, Denies irregular heart rhythm, Denies lightheadedness, Denies palpitations, Denies dyspnea, Denies dyspnea on exertion and Denies orthopnea Respiratory Respiratory: Denies cough, Denies dyspnea, Denies dyspnea on exertion and Denies wheezing Gastrointestinal Gastrointestinal: Denies abdominal pain, Denies change in bowel habits, Reports constipation, Reports fecal incontinence, Denies diarrhea, Reports nausea and Denies vomiting Genitourinary Genitourinary: Denies dysuria and Denies urinary incontinence Musculoskeletal Musculoskeletal: Denies neck pain and Denies numbness Integumentary/Breasts Skin/Breast: Denies pruritus, Denies erythema, Denies rash and Denies wounds Neurologic Neurologic: Denies behavioral changes, Denies confusion, Denies dizziness, Denies frequent falls, Denies loss of vision, Denies numbness and Denies weakness Psychiatric Psychiatric: Denies anxiety, Denies behavioral changes, Denies confusion, Denies depression, Denies homicidal ideation and Denies suicidal ideation Endocrine Endocrine: Denies fatigue, Denies flushing and Denies palpitations Hematologic/Lymphatic Hematologic/Lymphatic: Denies easy bruising Allergic/Immunologic Allergic/Immunologic: Denies urticaria, Denies throat swelling and Denies wheezing Patient History <Al Lawrence PA-C - Last Filed: 02/06/25 17:53> Medical History Obesity (BMI 30.0-34.9) Nonalcoholic fatty liver disease Lumbar back pain with radiculopathy affecting lower extremity Hypercalcemia Encounter for subsequent annual wellness visit (AWV) in Medicare patient Vision disorder Sleep apnea (~2018) Chronic headaches Disease of spine (~1999) Fracture (~2022) Carpal tunnel syndrome (~1988) Mumps Measles Chicken pox Fuchs' corneal dystrophy (~1999) Irregular heartbeat (~2014) Caregiver stress Hyperlipidemia Resistant hypertension Skin cancer Lipodermatosclerosis Postmenopausal Post-operative nausea and vomiting Chronic constipation Wheezes History of bronchitis History of headache Numbness of arm Neck pain Arthritis Hypertension (~1989) Positional vertigo Hyperaldosteronism Surgical History Anesthesia H/O right cataract extraction H/O left cataract extraction History of tonsillectomy (~1972) H/O: H/O carpal tunnel repair Previous back surgery History of hysterectomy (~2003) History of corneal transplant H/O vascular surgery Family History Father No problems noted. Mother Stroke Brother Brain cancer Social History household members: spouse Smoking Status: Never smoker alcohol intake: current Smoking Status: Never smoker alcohol intake frequency: a few times a week Exam <Al Lawrence PA-C - Last Filed: 02/06/25 17:53> Narrative Exam Narrative: Const General:?cooperative, healthy appearing and comfortable [facility] Head:?normal to inspection Ears:?hearing grossly normal bilaterally Nose:?external nose normal Face and sinus:?normal facial exam and sinuses nontender Mouth:?oral mucosae normal Throat:?posterior oropharynx normal Eyes General:?appearance normal, both eyes and all related structures Neck Neck:?normal visual inspection and no lymphadenopathy noted Resp Effort & Inspection:?normal respiratory effort Auscultation:?clear to auscultation bilaterally Cardio Rate:?regular rate Rhythm:?regular rhythm GI Abdomen is soft, nondistended, nontender to palpation. Neuro General:?patient alert, patient awake and patient oriented x3 Initial Vital Signs Initial Vital Signs: Vital Signs Temperature 98.4 F 02/06/25 11:04 Pulse Rate 64 02/06/25 11:04 Respiratory Rate 18 02/06/25 11:04 Blood Pressure 170/79 H 02/06/25 11:04 Pulse Oximetry 96 02/06/25 11:04 Oxygen Delivery Method Room Air 02/06/25 11:04 <Elva Philippe DO - Last Filed: 02/07/25 08:28> Initial Vital Signs Initial Vital Signs: Vital Signs Temperature 98.4 F 02/06/25 11:04 Pulse Rate 64 02/06/25 11:04 Respiratory Rate 18 02/06/25 11:04 Blood Pressure 170/79 H 02/06/25 11:04 Pulse Oximetry 96 02/06/25 11:04 Oxygen Delivery Method Room Air 02/06/25 11:04 Procedures <Al Lawrence PA-C - Last Filed: 02/06/25 17:53> Rectal Disimpaction Indication: fecal impaction Procedural Sedation: No Sedation/Analgesia: none Technique: manual disimpaction with gloved finger Result: unable to disimpact (In significant amount of stool in the distal rectum) Patient Tolerated Procedure: Well Course <TRAMAINE Sanchez Last Filed: 02/06/25 17:53> Orders Ordered: Discontinued Medications Sodium Chloride (Normal Saline 0.9%) 1,000 mls @ 1,000 mls/hr IV BOLUS ONE Stop: 02/06/25 12:57 Last Admin: 02/06/25 12:24 Dose: 1,000 mls/hr Documented By: LANCE Mineral Oil (Mineral Oil 1 Each Enema) 1 each ME NOW ONE Stop: 02/06/25 12:37 Last Admin: 02/06/25 13:01 Dose: 1 each Documented By: LANCE Vital Signs Vital signs: Vital Signs - 8 hr 02/06/25 11:04 02/06/25 12:22 02/06/25 12:25 Temperature 98.4 F 97.8 F Pulse Rate 64 59 L 58 L Respiratory Rate 18 18 Blood Pressure 170/79 H 140/67 Pulse Oximetry 96 97 94 Oxygen Delivery Method Room Air Room Air 02/06/25 12:30 02/06/25 12:31 02/06/25 12:31 Temperature Pulse Rate 56 L 55 L Respiratory Rate Blood Pressure 123/61 Pulse Oximetry 95 94 Oxygen Delivery Method 02/06/25 15:04 02/06/25 15:05 02/06/25 15:05 Temperature Pulse Rate 57 L 61 Respiratory Rate 16 15 Blood Pressure 129/77 Pulse Oximetry 96 98 Oxygen Delivery Method <Elva Philippe DO - Last Filed: 02/07/25 08:28> Orders Ordered: Discontinued Medications Sodium Chloride (Normal Saline 0.9%) 1,000 mls @ 1,000 mls/hr IV BOLUS ONE Stop: 02/06/25 12:57 Last Admin: 02/06/25 12:24 Dose: 1,000 mls/hr Documented By: LANCE Mineral Oil (Mineral Oil 1 Each Enema) 1 each ME NOW ONE Stop: 02/06/25 12:37 Last Admin: 02/06/25 13:01 Dose: 1 each Documented By: LANCE Vital Signs Vital signs: Vital Signs - 8 hr 02/06/25 11:04 02/06/25 12:22 02/06/25 12:25 Temperature 98.4 F 97.8 F Pulse Rate 64 59 L 58 L Respiratory Rate 18 18 Blood Pressure 170/79 H 140/67 Pulse Oximetry 96 97 94 Oxygen Delivery Method Room Air Room Air 02/06/25 12:30 02/06/25 12:31 02/06/25 12:31 Temperature Pulse Rate 56 L 55 L Respiratory Rate Blood Pressure 123/61 Pulse Oximetry 95 94 Oxygen Delivery Method 02/06/25 15:04 02/06/25 15:05 02/06/25 15:05 Temperature Pulse Rate 57 L 61 Respiratory Rate 16 15 Blood Pressure 129/77 Pulse Oximetry 96 98 Oxygen Delivery Method MDM - Back Pain/Injury <Al Lawrence PA-C - Last Filed: 02/06/25 17:53> Lab Data 02/06/25 11:19 02/06/25 11:19 Labs: Lab Results 02/06/25 02/06/25 Range/Units 11:11 11:19 WBC 6.1 (4.5-11.0) X10^3/uL RBC 4.83 (4.0-5.2) X10^6/uL Hgb 14.3 (12.0-16.0) g/dL Hct 42.4 (36-46) % MCV 87.8 (80-100) fL MCH 29.6 (26-34) PG MCHC 33.7 (30-36) % RDW 13.1 (11.6-14.8) % Plt Count 260 (150-400) X10^3/uL Neut % (Auto) 67.1 (50-75) % Lymph % (Auto) 18.6 L (25-40) % Blount % (Auto) 10.9 (3-14) % Eos % (Auto) 2.8 (2-4) % Baso % (Auto) 0.6 (0-2) % Neut # (Auto) 4100 (0792-8225) /uL Lymph # (Auto) 1100 (3836-9690) /uL Blount # (Auto) 700 (0-900) /uL Eos # (Auto) 200 (0-450) /uL Baso # (Auto) 0 (0-100) /uL Sodium 139 (137-145) mmol/L Potassium 3.9 (3.4-5.1) mmol/L Chloride 102 (98-107) mmol/L Carbon Dioxide 28 (22-32) mmol/L BUN 22 H (7-17) mg/dL Creatinine 0.68 (0.52-1.04) mg/dL Estimated GFR > 60 (>60) mL/min BUN/Creatinine Ratio 32.4 H (6-22) Glucose 111 H (70-99) mg/dL Lactate 0.8 (0.7-2.1) mmol/L Calcium 10.7 H (8.4-10.2) mg/dL Total Bilirubin 0.8 (0.2-1.3) mg/dL AST 34 (14-36) IU/L ALT 36 H (<35) IU/L Alkaline Phosphatase 127 H (38-126) U/L Total Protein 7.8 (6.3-8.2) g/dL Albumin 4.8 (3.5-5.0) g/dL Globulin 3.0 (1.7-4.1) g/dL Albumin/Globulin Ratio 1.6 (1.0-2.8) Urine Color Yellow Urine Appearance Clear Urine pH 6.0 (4.5-8.0) Ur Specific [place] 1.015 (1.000-1.035) Urine Protein Negative (Negative) Urine Glucose (UA) Negative (Negative) g/dL Urine Ketones Negative (NEGATIVE) Urine Occult Blood Negative (Negative) Urine Nitrate Negative (Negative) Urine Bilirubin Negative (NEGATIVE) Urine Urobilinogen 0.2 (0.2) E.U./dL Ur Leukocyte Esterase Negative (NEGATIVE) Urine RBC None seen (0-5/HPF) Urine WBC None seen (0-5/HPF) Ur Squamous Epith Cells None seen (0-5/HPF) Urine Bacteria None seen (None) Ur Culture Indicated? Cult not indicated Vol Urine Centrifuged 10ml (spun) MDM Narrative Medical decision making narrative: 74-year-old female with past medical history hypertension, sleep apnea, hypercalcemia, lumbar radiculopathy with sciatica presents to the ED with about 4 days of stool incontinence. Concern for constipation versus neurologic etiology versus gastroenteritis versus UTI versus other. Will obtain labs, UA, CT abdomen pelvis. Will reassess. Labs significant for mild hypercalcemia at 10.7. Will give fluids. CT scan with no acute abnormality identified in the abdomen or pelvis. There is moderate to large volume of stool in the colon, which clinically correlates to constipation and patient's symptoms. Will give enema. Will reassess. Patient did not have much success septal the 1st enema. A digital disimpaction was attempted, although distal rectum did not have significant amount of stool in the. A 2nd enema was administered with good success. Patient had a large bowel movement. Patient endorsed feeling better. Counseled patient on bowel regimen with MiraLax, Dulcolax and plenty of water. Recommend follow-up with PCP as soon as possible. ED return precautions discussed with patient. Patient verbalized understanding. Medical records reviewed: Yes <Elva Philippe, - Last Filed: 02/07/25 08:28> Lab Data Labs: Lab Results 02/06/25 02/06/25 Range/Units 11:11 11:19 WBC 6.1 (4.5-11.0) X10^3/uL RBC 4.83 (4.0-5.2) X10^6/uL Hgb 14.3 (12.0-16.0) g/dL Hct 42.4 (36-46) % MCV 87.8 (80-100) fL MCH 29.6 (26-34) PG MCHC 33.7 (30-36) % RDW 13.1 (11.6-14.8) % Plt Count 260 (150-400) X10^3/uL Neut % (Auto) 67.1 (50-75) % Lymph % (Auto) 18.6 L (25-40) % Blount % (Auto) 10.9 (3-14) % Eos % (Auto) 2.8 (2-4) % Baso % (Auto) 0.6 (0-2) % Neut # (Auto) 4100 (4955-8459) /uL Lymph # (Auto) 1100 (5556-4769) /uL Blount # (Auto) 700 (0-900) /uL Eos # (Auto) 200 (0-450) /uL Baso # (Auto) 0 (0-100) /uL Sodium 139 (137-145) mmol/L Potassium 3.9 (3.4-5.1) mmol/L Chloride 102 (98-107) mmol/L Carbon Dioxide 28 (22-32) mmol/L BUN 22 H (7-17) mg/dL Creatinine 0.68 (0.52-1.04) mg/dL Estimated GFR > 60 (>60) mL/min BUN/Creatinine Ratio 32.4 H (6-22) Glucose 111 H (70-99) mg/dL Lactate 0.8 (0.7-2.1) mmol/L Calcium 10.7 H (8.4-10.2) mg/dL Total Bilirubin 0.8 (0.2-1.3) mg/dL AST 34 (14-36) IU/L ALT 36 H (<35) IU/L Alkaline Phosphatase 127 H (38-126) U/L Total Protein 7.8 (6.3-8.2) g/dL Albumin 4.8 (3.5-5.0) g/dL Globulin 3.0 (1.7-4.1) g/dL Albumin/Globulin Ratio 1.6 (1.0-2.8) Urine Color Yellow Urine Appearance Clear Urine pH 6.0 (4.5-8.0) Ur Specific [place] 1.015 (1.000-1.035) Urine Protein Negative (Negative) Urine Glucose (UA) Negative (Negative) g/dL Urine Ketones Negative (NEGATIVE) Urine Occult Blood Negative (Negative) Urine Nitrate Negative (Negative) Urine Bilirubin Negative (NEGATIVE) Urine Urobilinogen 0.2 (0.2) E.U./dL Ur Leukocyte Esterase Negative (NEGATIVE) Urine RBC None seen (0-5/HPF) Urine WBC None seen (0-5/HPF) Ur Squamous Epith Cells None seen (0-5/HPF) Urine Bacteria None seen (None) Ur Culture Indicated? Cult not indicated Vol Urine Centrifuged 10ml (spun) Discharge Plan Departure Patient Disposition: Home Clinical Impression: Constipation Qualifiers: Constipation type: unspecified constipation type Qualified Code(s): K59.00 - Constipation, unspecified Instructions: DI for Constipation Activity Restrictions/Additional Instructions: You were evaluated in the emergency department today for some stool incontinence. It appears that your CT scan showed constipation but no other abnormalities. It is common with constipation to have some stool leakage around the impacted stool. This is likely what you were experiencing. You were given 2 enemas and a bowel disimpaction was performed with good results and you had a good bowel movement. It is important to keep up your bowel regimen with 1-2 doses of MiraLax daily accompanied with plenty of hydration. MiraLax only works well when you have plenty of hydration. You may also add on Dulcolax or other laxatives to keep your regular. Please do continued to consume yogurt, fruits, vegetables, beans for fiber. Please follow-up with your PCP as soon as possible. Return to the ED if you have worsening symptoms. Prescriptions: No Action losartan 100 mg tablet 100 mg PO DAILY Qty: 90 3RF amlodipine 10 mg tablet 10 mg PO DAILY Qty: 100 3RF estradiol [Estrace] 0.01 % (0.1 mg/gram) cream See Rx Instructions vaginal .COMPLEX Qty: 42.5 5RF Rx Instructions: 500 mg intravaginally for 2 weeks, then 500 mg twice per week intravaginally for 1 to 2 weeks, then gradually reduce to 1/2 the initial dose twice per week. atorvastatin 40 mg tablet 40 mg PO DAILY Qty: 100 3RF lorazepam 0.5 mg tablet 0.25 - 0.5 mg PO DAILY PRN (Reason: sleep) Qty: 10 0RF Rx Instructions: prior to flying hydrochlorothiazide 25 mg tablet 25 mg PO BID cholecalciferol (vitamin D3) 50 mcg (2,000 unit) capsule 50 mcg PO DAILY Qty: 100 3RF spironolactone 25 mg tablet 25 mg PO DAILY Qty: 90 3RF Referrals: Julio Cesar Duffy DO [Primary Care Provider, Family Practice] Stand Alone Forms: Patient Portal/API ED Sign-out <Elva Philippe DO - Last Filed: 02/07/25 08:28> Cosign ED Attending Cosignature Attestation: I was immediately available in the department for consultation.
[2025-02-06 11:45] LABS: Lactate (Lactic Acid) 0.8 mmol/L (0.7-2.1)
[2025-02-06 11:46] LABS: Alanine Aminotransferase 36 IU/L (<35); Albumin 4.8 g/dL (3.5-5.0); Albumin Globulin Ratio 1.6 (1.0-2.8); Alkaline Phosphatase 127 U/L (38-126); Blood Urea Nitrogen 22 mg/dL (7-17); Calcium 10.7 mg/dL (8.4-10.2); Carbon Dioxide 28 mmol/L (22-32); Chloride 102 mmol/L (98-107); Estimated Glomerular Filt Rate > 60 mL/min (>60); Globulin 3.0 g/dL (1.7-4.1); Glucose 111 mg/dL (70-99); HEMOLYSIS < 15 (0-50); Potassium 3.9 mmol/L (3.4-5.1); Sodium 139 mmol/L (137-145); Total Protein 7.8 g/dL (6.3-8.2)
[2025-02-06 12:17] LABS: Appearance Urine UA CLEAR; Bilirubin Urine UA NEGATIVE (NEGATIVE); Color Urine UA YELLOW; Glucose Urine UA NEGATIVE (Negative); Ketones Urine UA NEGATIVE (NEGATIVE); Leukocyte Esterase Urine UA NEGATIVE (NEGATIVE); Nitrite Urine UA NEGATIVE (Negative); Occult Blood Urine UA NEGATIVE (Negative); Protein Urine UA NEGATIVE (Negative); Specific Gravity Urine UA 1.015 (1.000-1.035); Urobilinogen Urine UA 0.2 E.U./dL (0.2)
[2025-02-06 12:20] LABS: pH Urine UA 6.0 (4.5-8.0)
[2025-02-06 12:23] LABS: Culture Indicated Urine Cult Not Indicated
[2025-02-06] MEDS: SODIUM CHLORIDE 0.9% 1,000 ML 1000 ML IV (12:24)
[2025-02-06] MEDS: MINERAL OIL 1 EACH ENEMA PR (13:01)
== END 2025-02-06 15:11 | disposition home or self-care (01) ==
PROVIDERS: Emergency Provider Student in an Organized Health Care Education/Training Program; PCP Family Medicine
DX: K59.00 Constipation, unspecified (principal); I10 Essential (primary) hypertension
CPT/HCPCS: 74177; 80053; 81001; 83605; 85025; 99283; 99284; J7030; Q9967